=== PATIENT | male | born 1960 | race Caucasian/White ===

== ENCOUNTER 2018-01-22 12:02 | Outpatient (CLI) | payer OTHER ==
[~2018-01-22] VITALS: Ht 182.9 cm; Wt 103.0 kg
[~2018-01-22 12:02] MED LIST: AMLO1CAP4 PO; AMLO1TAB52 PO; CEPH500C PO; HYDR1TAB8 OP; SULF1TAB38 PO
[2018-01-22] MEDS ORDERED: ASPI-808 PO (12:10)
[2018-01-22] MEDS ORDERED: AMLO1CAP7 PO (12:10)
[2018-01-22 12:50] LABS: BASOPHILS % (AUTO) 0 % (0-10); EOSINOPHILS # (AUTO) 0.4 10^3/uL (0.0-0.3); EOSINOPHILS % (AUTO) 5 % (0-10); HEMATOCRIT 46 % (40-54); HEMOGLOBIN 16.2 G/DL (13.3-17.7); LYMPHOCYTES # (AUTO) 2.3 X 10^3 (1.0-4.0); LYMPHOCYTES % (AUTO) 30 % (12-44); MEAN CORPUSCULAR HEMOGLOBIN 31 PG (25-34); MEAN CORPUSCULAR HGB CONC 35 G/DL (32-36); MEAN CORPUSCULAR VOLUME 88 FL (80-99); MEAN PLATELET VOLUME 9.2 FL (7.4-10.4); MONOCYTES # (AUTO) 0.9 X 10^3 (0.0-1.0); MONOCYTES % (AUTO) 12 % (0-12); NEUTROPHILS % (AUTO) 52 % (42-75); PLATELET COUNT 256 10^3/uL (130-400); RED BLOOD COUNT 5.24 10^6/uL (4.35-5.85); RED CELL DISTRIBUTION WIDTH 13.6 % (10.0-14.5); WHITE BLOOD COUNT 7.7 10^3/uL (4.3-11.0)
--- NOTE | 2018-01-22 12:56 | Diagnostic Imaging Report ---
INDICATION: Preoperative evaluation for right knee replacement. COMPARISON: None. FINDINGS: Frontal and lateral views of the chest demonstrate normal heart size and pulmonary vascularity. The lungs are clear. There are no signs of infiltrate, pleural effusions or pneumothoraces. The visualized osseous structures show no acute abnormalities. IMPRESSION: 1. No acute process. No signs of infiltrates, effusions or pneumothoraces. Dictated by: Dictated on workstation # [id number]
[2018-01-22 13:03] VITALS: BP 137/83
[2018-01-22 13:04] LABS: PROTHROMBIN TIME PATIENT 13.1 SEC (12.2-14.7)
[2018-01-22 13:09] LABS: BUN/CREATININE RATIO 17; CARBON DIOXIDE 20 MMOL/L (21-32); CHLORIDE 107 MMOL/L (98-107); CREATININE SERUM 0.86 MG/DL (0.60-1.30); GFR ESTIMATED > 60; GLUCOSE 86 MG/DL (70-105); POTASSIUM 4.1 MMOL/L (3.6-5.0); SODIUM 137 MMOL/L (135-145)
[2018-01-22 14:03] LABS: BILIRUBIN,URINE NEGATIVE (NEGATIVE); CLARITY,URINE CLEAR; COLOR,URINE YELLOW; GLUCOSE, URINE (UA) NEGATIVE (NEGATIVE); KETONES,URINE NEGATIVE (NEGATIVE); LEUKOCYTE ESTERASE ,URINE NEGATIVE (NEGATIVE); NITRITE,URINE NEGATIVE (NEGATIVE); PH,URINE 5 (5-9); PROTEIN,URINE NEGATIVE (NEGATIVE); UROBILINOGEN,URINE NORMAL (NORMAL)
[2018-01-22 14:54] LABS: BACTERIA,URINE NEGATIVE /HPF; SQUAMOUS EPITHELIAL CELL,UR RARE /HPF
== END 2018-01-22 12:55 | disposition home or self-care (01) ==
LOC: PREOP 12:02
PROVIDERS: ATTEND Orthopaedic Surgery
DX: Z01.810 Encounter for preprocedural cardiovascular examination (principal); Z01.811 Encounter for preprocedural respiratory examination; Z01.812 Encounter for preprocedural laboratory examination; Z11.2 Encounter for screening for other bacterial diseases; M17.11 Unilateral primary osteoarthritis, right knee; I10 Essential (primary) hypertension; R53.83 Other fatigue; M79.661 Pain in right lower leg; Z22.322 Carrier or suspected carrier of Methicillin resistant Staphylococcus aureus
CPT/HCPCS: 36415; 71046; 80048; 81000; 85025; 85610; 86850; 86900; 86901; 87081; 93005

== ENCOUNTER 2018-02-05 06:00 | Inpatient (IN) | payer OTHER ==
[~2018-02-05] VITALS: Ht 182.9 cm; Wt 103.0 kg
[~2018-02-05 06:00] MED LIST changes: +AMLO1CAP7 PO; +ASPI-808 PO
[2018-02-05] MEDS ORDERED: ONDANSETRON 4 MG/2 ML (SDV) Z0FRAN IVP ONE (06:30)
[2018-02-05] MEDS ORDERED: CELECOXIB 100 MG (CeleBREX) CAP PO ONE (06:30)
[2018-02-05] MEDS ORDERED: ceFAZolin 2 GM IV Premixed 50 ML IV ONE (06:30)
[2018-02-05] MEDS ORDERED: GABAPENTIN 600 MG (NEURONTIN) TAB PO ONE (06:30)
[2018-02-05] MEDS ORDERED: DEXAMETHASONE 4 MG/ML SDV (DECADRON) IV ONE (06:30)
[2018-02-05] MEDS ORDERED: ROPIVACAINE 5MG/ML 30ML VIAL ONE (06:32)
[2018-02-05] MEDS ORDERED: MIDAZOLAM 2 MG/2 ML (VERSED) VIAL ONE (06:32)
[2018-02-05] MEDS ORDERED: fentaNYL INJECTION 100 MCG/2 ML AMP ONE ×2 (06:32→08:15)
[2018-02-05] MEDS ORDERED: NEO/POLY/BAC (NEOSPORIN) OINT 15 GM TUBE ONE (06:50)
[2018-02-05] MEDS ORDERED: GENTAMICIN 40 MG/ML 2 ML INJ SDV ONE (06:50)
[2018-02-05] MEDS: LACTATED RINGERS 1,000 ML IV PRN ×2 (06:55→09:19)
[2018-02-05] MEDS ORDERED: ALPR0.5T PO (07:48)
[2018-02-05 07:58] VITALS: BP 139/95
[2018-02-05] MEDS ORDERED: diphenhydrAMINE 50 MG/ML INJ (BENADRYL) IV PRN (08:00)
[2018-02-05] MEDS ORDERED: ONDANSETRON 4 MG/2 ML (SDV) Z0FRAN IVP PRN ×2 (08:00→11:00)
[2018-02-05] MEDS ORDERED: PROMETHAZINE INJ 25 MG/ML (PHENERGAN) AMP IVP PRN (08:00)
[2018-02-05] MEDS ORDERED: morphine INJ 10 MG/ML 1ML (SYR OR VIAL) IVP PRN ×2 (08:00→11:00)
[2018-02-05] MEDS ORDERED: BACLOFEN 10 MG (LIORESAL) TAB PO PRN (08:00)
[2018-02-05] MEDS ORDERED: BISACODYL 10 MG SUPP (DULCOLAX) PR PRN (08:00)
--- NOTE | 2018-02-05 08:00 | Progress Note-Pre Operative ---
Pre-Operative Progress Note H&P Reviewed The H&P was reviewed, patient examined and no changes noted. Date Seen by Provider: Feb 05, 2018 Time Seen by Provider: 07:50 Date H&P Reviewed: Feb 05, 2018 Time H&P Reviewed: 07:50 Pre-Operative Diagnosis: Primary Osteoarthritis Right Knee KRISTA MARQUEZ DO Feb 05, 2018 8:00 am
[2018-02-05] MEDS ORDERED: INTRA-ARTICULAR IU ONE ×4 (08:30)
[2018-02-05] MEDS ORDERED: GENTAMICIN 40 MG/ML 2 ML INJ SDV IR SCH ×2 (08:45→09:45)
[2018-02-05] MEDS ORDERED: DEXAMETHASONE 10 MG/ML (DECADRON) 1 ML VIAL ONE (08:49)
[2018-02-05] MEDS ORDERED: proPOfol 200 MG/20 ML (DIPRIVAN) VIAL IV ONE (08:49)
[2018-02-05] MEDS ORDERED: NON-FORMULARY MEDICATION 1 EA EA (Amlodipine Besylate/Benazepril (Amlodipine-Benazepril 5- PO SCH (09:00)
[2018-02-05] MEDS ORDERED: TRANEXAMIC ACID 100 MG/ML 10 ML INJECTION IV ONE (09:31)
--- NOTE | 2018-02-05 10:09 | Progress Note-Post Operative ---
Post-Operative Progess Note Surgeon (s)/Mold Presser (s) Surgeon KRISTA MARQUEZ DO Mold Presser: [facility] [employer]-[facility] Pre-Operative Diagnosis Primary Osteoarthritis Right Knee Post-Operative Diagnosis Primary Osteoarthritis Right Knee Procedure & Operative Findings Date of Procedure 02/05/18 Procedure Performed/Findings Right Total Knee Arthroplasty Anesthesia Type General with femoral nerve block Estimated Blood Loss Estimated blood loss (mL): 100 ml Specimens/Packing Specimens Removed none KRISTA MARQUEZ DO Feb 05, 2018 10:08 am
[2018-02-05] MEDS ORDERED: SEVOFLURANE (ULTANE) 15 ML INHAL SOLN ONE (10:18)
--- NOTE | 2018-02-05 10:54 | Diagnostic Imaging Report ---
INDICATION: Postoperative. TECHNIQUE: 2 post operative radiographs of the right knee 10:42 AM CORRELATION STUDY: None FINDINGS: There are postsurgical changes of a total knee arthroplasty. Alignment is anatomic. Installed hardware appearing unremarkable. Overlying soft tissue gas collections and skin vianney are present. IMPRESSION: Postsurgical changes of a right total knee replacement. Dictated by: Dictated on workstation # [id number]
[2018-02-05] MEDS: D5 1/2 NS 1000 ML IV SOLUTION 1,000 ML IV SCH (11:57)
[2018-02-05 12:00] VITALS: BP 153/85
[2018-02-05] MEDS ORDERED: NAPR220T66 PO (13:07)
--- NOTE | 2018-02-05 13:57 | OPERATIVE REPORT ---
DATE OF SERVICE: 02/05/2018 PREOPERATIVE DIAGNOSIS: Primary osteoarthritis, right knee. POSTOPERATIVE DIAGNOSIS: Primary osteoarthritis, right knee. PROCEDURE: Right total knee arthroplasty. SURGEON: Krista Marquez DO. PV INSTALLER TECH: EM Oscar. ANESTHESIA: General with femoral nerve block. INDICATIONS AND FINDINGS: The patient is a 57-year-old male seen with chief complaint of progressive right knee pain, swelling and deformity. The patient has significant varus deformity of his right knee with recurrent giving way sensation. X-rays revealed a collapse of the medial patellofemoral compartment. The patient was taken to surgery where a total knee arthroplasty was performed without complication on the right utilizing the Biomet Sympozguard total knee system with a cemented 67.5 mm femoral component, a cemented 75 mm fixed I-beam tibial plate, a 34 mm 3-pronged all-polyethylene cemented thin patella, 11 mm anterior stabilized tibial bearing implant was utilized, Palacos bone cement with gentamicin was utilized as well. PROCEDURE IN DETAIL: The patient was seen by anesthesia preoperatively and a femoral nerve block was performed on the right to decrease postop pain and decrease amount of medication required during the surgical procedure. The patient was transported to the operating room where general inhalation anesthetic was administered. A well-padded pneumatic tourniquet was placed about the upper aspect of the right thigh. A ChloraPrep and sterile drape of the right lower extremity was performed. Right leg was elevated, exsanguinated and the tourniquet inflated to 300 mmHg pressure. An anterior longitudinal midline incision was made over the anterior surface of the knee. The incision was deepened through a medial parapatellar incision. The patella was subluxed laterally. Hypertrophic osteophyte formation of the distal femur was removed. The bone was removed with a bone rongeur. A yard pilot hole was then drilled in the distal femur. An intramedullary jessica was inserted utilizing a 5-degree cutting angle. A distal femoral cutting guide was assembled and distal femoral osteotomy was completed. The distal femur was sized to a 67.5 mm femoral component. A 4-way cutting guide was assembled. Anterior, posterior and chamfer cuts of the distal femur made. Remnants of the medial and lateral menisci were excised. The anterior cruciate ligament was excised. The tibia was subluxed anteriorly. A yard pilot hole was then drilled into the proximal tibia. An intramedullary jessica was inserted, measuring off the exposed bone over the proximal medial tibia. A proximal tibial cutting guide was assembled and a proximal tibial osteotomy was completed. Additional subperiosteal dissection was performed on the proximal medial tibia. The knee could be fully extended with a provisional spacer. Osteophyte formation from the rim of the patella was removed with a bone rongeur. The posterior aspect of the patella was resected through a cutting guide and drill through a drill guide. Provisional components were inserted within the knee. The knee was cycled through a range of motion. Rotation of the tibial component was noted and marked on the proximal tibia. The proximal tibia was then broached to accept the I-beam stem portion of the tibial implant. Palacos bone cement with gentamicin was then mixed. This was then pressurized in the proximal tibia and the tibial component was cemented in place. Four additional small drill holes have been placed in the significant sclerotic bone in the proximal medial tibia for additional fixation. The femoral component was cemented in place. The knee was taken into full extension with a provisional tibial bearing implant. Patellar component was cemented in place and held with a clamp. Excess of cement was removed. The cement was allowed to set. The knee was reexamined for stability and an 11 mm anterior stabilized tibial bearing implant was inserted and locked anteriorly with the locking bar. No instability in full flexion and mid range flexion was noted. Full extension of the knee was obtained. The tourniquet was released. Hemostasis was obtained with electrocautery. The knee was placed in 90 degrees of flexion and the medial retinaculum was closed with multiple interrupted [id number] sutures of #1 Vicryl reinforced with a running suture of #1 Stratafix. The subcutaneous tissues were closed with 0 and 2-0 Vicryl suture. The skin was closed with stainless steel vianney and Adaptic Neosporin bulky dressing was placed on the right knee. The patient was awakened and was transported to postop recovery with anesthesia personnel present in satisfactory condition. Job ID: [id number] DocumentID: [id number] Dictated Date: 02/05/2018 10:29:30 Cable Dispatcher Date: 02/05/2018 13:56:50 Dictated By: KRISTA MARQUEZ DO
[2018-02-05 15:30] VITALS: BP 148/81
[2018-02-05] MEDS: ceFAZolin 2 GM IV Premixed 50 ML IV SCH (15:31)
[2018-02-05 20:00] VITALS: BP 137/85
[2018-02-05] MEDS: KETOROLAC 30 MG/ML VIAL IVP PRN (20:07)
[2018-02-05] MEDS: ENOXAPARIN 40 MG/0.4 ML (LOVENOX) SYR SC SCH (20:08)
[2018-02-06] VITALS: BP 133/59
[2018-02-06] MEDS: D5 1/2 NS 1000 ML IV SOLUTION 1,000 ML IV SCH (00:50)
[2018-02-06] MEDS: KETOROLAC 30 MG/ML VIAL IVP PRN (04:02)
[2018-02-06 04:16] VITALS: BP 111/53
[2018-02-06 06:10] LABS: HEMOGLOBIN 13.3 G/DL (13.3-17.7); MEAN PLATELET VOLUME 9.2 FL (7.4-10.4); RED BLOOD COUNT 4.34 10^6/uL (4.35-5.85); RED CELL DISTRIBUTION WIDTH 13.6 % (10.0-14.5); WHITE BLOOD COUNT 17.9 10^3/uL (4.3-11.0)
[2018-02-06 06:31] LABS: BUN/CREATININE RATIO 16; CALCIUM 8.9 MG/DL (8.5-10.1); CARBON DIOXIDE 19 MMOL/L (21-32); CHLORIDE 107 MMOL/L (98-107); CREATININE SERUM 0.91 MG/DL (0.60-1.30); GFR ESTIMATED > 60; GLUCOSE 205 MG/DL (70-105); POTASSIUM 4.5 MMOL/L (3.6-5.0); SODIUM 134 MMOL/L (135-145)
--- NOTE | 2018-02-06 07:21 | Anesthesia-General Post-Op ---
General Patient Condition Mental Status/LOC: Same as Preop Cardiovascular: Satisfactory Nausea/Vomiting: Absent Respiratory: Satisfactory Pain: Controlled Complications: Absent Post Op Complications Complications None Follow Up Care/Instructions Patient Instructions None needed. Anesthesia/Patient Condition Patient Condition Patient is doing well, no complaints, stable vital signs, no apparent adverse anesthesia problems. No complications reported per nursing. ZEKE DAMON CRNA Feb 06, 2018 07:21
[2018-02-06 08:00] VITALS: BP 132/78
[2018-02-06] MEDS: lisINopril 10 MG (PRINIVIL) TABLET PO SCH (08:55)
[2018-02-06] MEDS: HYDROcodone/APAP 10 MG/325 MG (LORTAB) TAB PO PRN ×3 (08:55→20:44)
[2018-02-06] MEDS: SENNA W/DOCUSATE (SENOKOT S) TABLET PO SCH ×2 (08:55→20:44)
[2018-02-06] MEDS: amLODIPine 5 MG (NORVASC) TAB PO SCH (08:55)
[2018-02-06] MEDS: ASPIRIN E.C. 325 MG (ECOTRIN) TABLET PO SCH ×2 (08:55→09:45)
[2018-02-06] MEDS: BISACODYL 5 MG (DULCOLAX) TABLET PO SCH ×3 (08:55→20:43)
--- NOTE | 2018-02-06 10:46 | Physical Therapy Evaluation ---
PT Evaluation-General Medical Diagnosis Admission Date Feb 05, 2018 at 06:00 Medical Diagnosis: right TKA Onset Date: Feb 05, 2018 Therapy Diagnosis Therapy Diagnosis: impaired mobility, strength, endruance, ROM Height/Weight Height (Feet): 6 Height (Inches): 0.00 Weight (Pounds): 227 Weight (Ounces): 0.0 Precautions Precautions/Isolations: Fall Prevention, Standard Precautions Weight Bear Status Right Lower Extremity: Right Weight Bearing/Tolerated Left Lower Extremity: Left Full Weight Bearing Referral Physician: Sunny Coelho DO Reason for Referral: Evaluation/Treatment Medical History Current History surgery right TKA Reviewed History: Yes Social History Home: Single Level Current Living Status: Spouse PT Steps Into Home: 2 Prior/Core FIM Prior Level of Function Functional [place] Measure 0=Not Assessed/NA 4=Minimal Assistance 1=Total Assistance 5=Supervision or Setup 2=Maximal Assistance 6=Modified [place] 3=Moderate Assistance 7=Complete [place] Bed Mobility: 7 Transfers (B,C,W/C) (FIM): 7 Gait: 7 PT Evaluation-Current Subjective Patient in bed pre tx, agrees to PT, has pain of 2/10 in right knee. Pt/Family Goals "to improve his knee pain" Objective Patient Orientation: Person, Place, Situation Attachments: SCD's, Polar Pack ROM/Strength ROM Lower Extremities right knee flexion 70 degrees, extension +5 degrees Strength Lower Extremities NT Neuromuscular (Tone, Coordination, Reflexes) NT Sensory Vision: Functional Hearing: Functional Sensation Right Lower Extremit: Intact Sensation Left Lower Extremity: Intact Sensation Lower Extremities Patient has no complaints of numbness or tingling other than directly on his incision. Transfers Functional [place] Measure 0=Not Assessed/NA 4=Minimal Assistance 1=Total Assistance 5=Supervision or Setup 2=Maximal Assistance 6=Modified [place] 3=Moderate Assistance 7=Complete [place] Transfers (B, C, W/C) (FIM): 4 Scootin Rollin Supine to/from Sit: 4 Sit to/from Stand: 4 bed t/f WC(FIM only if WC use): 4 Min assist to get right leg into and out of bed, CGA for transfers. Cues for hand placement and safety. Gait Mode of Locomotion: Walk Anticipated Mode of Locomotion: Walk Gait (FIM): 4 Distance: 150' Gait Level of Assist: 4 Gait Persons Needed: 1 Gait Assistive Device: FWW Comments/Gait Description Patient ambulated 150' with a rolling walker with CGA, antalgic gait, slightly flexed right knee. Balance Sitting Static: Normal Sitting Dynamic: Normal Standing Static: Good Standing Dynamic: Good Treatment right TKA protocol x10 (AP, QS, HS, SAQ, SLR) Assessment/Needs Patient has impaired mobility, strength, endurance, ROM post right TKA. After treatment patient in bed with CPM donned at 70/-2 degrees and polar care on. Patient has nurse call, phone, tray, all needs met. Rehab Potential: Fair PT Short Term Goals Short Term Goals Time Frame: Feb 13, 2018 Transfers (B,C,W/C) (FIM): 5 Gait (FIM): 5 Gait Distance Comment: 300' Gait Level of Assist: 5 Gait Assistive Device: FWW PT Plan Problem List Problem List: Activity Tolerance, Functional Strength, Safety, Balance, Gait, Transfer, Bed Mobility, ROM Treatment/Plan Treatment Plan: Continue Plan of Care Treatment Plan: Bed Mobility, Education, Functional Activity Teresa, Functional Strength, Gait, Safety, Therapeutic Exercise, Transfers Treatment Duration: Feb 13, 2018 Frequency: 11 times per week Estimated Hrs Per Day: .25 hour per day (15-30') Patient and/or Family Agrees t: Yes Safety Risks/Education Patient Education: Gait Training, Transfer Techniques, Reviewed Use of Ice, Correct Positioning, Disease Process, Safety Issues Teaching Recipient: Patient Teaching Methods: Demonstration, Discussion Response to Teaching: Reinforcement Needed Discharge Recommendations Plan Patient will perform bed mobility and transfer training, balance and endurance training, functional strengthening, stair training, gait training, and education , to improve functional mobility and independence at home. Therapy D/C Recommendations: Home w/ Family Support Time/GCodes Time In: 1005 Time Out: 1035 Total Billed Treatment Time: 30 Total Billed Treatment 1 visit EVL 15' GT 15' MACIE MARKS PT Feb 06, 2018 10:46
[2018-02-06 12:00] VITALS: BP 145/88
--- NOTE | 2018-02-06 13:27 | Progress Note (SOAP) ---
Subjective Date Seen by Provider: Feb 06, 2018 Time Seen by Provider: 13:10 Subjective/Events-last exam Awake4 and alert no complaints Focused Exam Respiratory: Lungs Clear Cardiovascular: Regular Rate, Rhythm Peripheral Pulses: 2+ Dorsalis Pedis (R) Skin: normal color Objective Exam Vital Signs Date Time Temp Pulse Resp B/P (MAP) Pulse Ox O2 Delivery O2 Flow Rate FiO2 02/06/18 12:00 98.8 82 18 145/88 (107) 96 Room Air 02/06/18 08:00 98 Room Air 02/06/18 08:00 96.4 82 16 132/78 (96) 98 Room Air 02/06/18 04:16 97.7 94 18 111/53 (72) 97 Room Air 02/06/18 00:00 98.2 95 19 133/59 (83) 95 Room Air 02/05/18 20:00 98.5 95 20 137/85 (102) 94 Room Air 02/05/18 15:30 97.8 100 20 148/81 (103) 93 Room Air I & O 02/06/18 07:00 Intake Total 2740 ml Output Total 1550 ml Balance 1190 ml Capillary Refill : General Appearance: No Apparent Distress Neck: Full Range of Motion Respiratory: Lungs Clear Cardiovascular: Regular Rate, Rhythm Peripheral Pulses: 2+ Dorsalis Pedis (R) Gastrointestinal: non tender Extremity: No Calf Tenderness Neurologic/Psychiatric: Oriented x3 Skin: Normal Color Lymphatic: No Adenopathy Results Lab Laboratory Tests 02/06/18 05:32: White Blood Count 17.9H, Red Blood Count 4.34L, Hemoglobin 13.3, Hematocrit 39L , Mean Corpuscular Volume 89, Mean Corpuscular Hemoglobin 31, Mean Corpuscular Hemoglobin Concent 35, Red Cell Distribution Width 13.6, Platelet Count 259, Mean Platelet Volume 9.2, Sodium Level 134L, Potassium Level 4.5, Chloride Level 107, Carbon Dioxide Level 19L, Anion Gap 8, Blood Urea Nitrogen 15, Creatinine 0.91, Estimat Glomerular Filtration Rate > 60, BUN/Creatinine Ratio 16, Glucose Level 205H, Calcium Level 8.9 Assessment/Plan Assessment/Plan Assess & Plan/Chief Complaint Status post Right Total knee Arthroplasty Final Diagnosis Primary Osteoarthritis right knee Clinical Quality Measures DVT/VTE Risk/Contraindication: Risk Factor Score Per Nursin RFS Level Per Nursing on Admit: 4+=Very High ALMAKRISTA ALFARO DO Feb 06, 2018 1:27 pm
--- NOTE | 2018-02-06 14:47 | Physical Therapy Daily Note ---
PT Daily Note-Current Subjective Patient in bed pre tx, agrees to PT, has 2/10 pain. Appearance Patient in bed post tx, with nurse call, phone, tray, all needs met. Polar care on. Mental Status Patient Orientation: Normal For Age Attachments: Polar Pack Transfers Functional [place] Measure 0=Not Assessed/NA 4=Minimal Assistance 1=Total Assistance 5=Supervision or Setup 2=Maximal Assistance 6=Modified [place] 3=Moderate Assistance 7=Complete IndependenceIRFPAI Quality Coding Scale 6 Independent with activity with or without an assistive device 5 Patient requires set up or clean up by helper. Patient completes activity by themselves 4 Supervision or touching assist (CGA). [place] provide cues , steadying assist 3 The helper provides less than half the effort to complete the activity 2 The helper provides more than half the effort to complete the activity 1 Dependent. The helper does all the effort to complete an activity 7 Patient refused to complete or attempt activity 9 The patient did not perform the activity before the current illness or injury 88 Not attempted due to Medical conditions or safety concerns Transfers (B, C, W/C) (FIM): 5 Scootin Rollin Supine to/from Sit: 5 Sit to/from Stand: 5 Bed to/from Chair: 5 Steady, no LOB Weight Bearing Right Lower Extremity: Right Weight Bearing/Tolerated Left Lower Extremity: Left Full Weight Bearing Gait Training Gait (FIM): 5 Distance: 250' Gait Level of Assist: 5 Gait Persons Needed: 1 Gait Assistive Device: FWW antalgic, slow, slightly flexed right knee Exercises Supine Ex: Ankle pumps, Quad Set, Heel Slides, Short Arc Quads, Straight leg raise Supine Reps: 10 (RLE) Treatments bed mobility, transfers, ambulation, functional strengthening, ROM Assessment Current Status: Fair Progress improving ambulation and transfers PT Short Term Goals Short Term Goals Time Frame: Feb 13, 2018 Transfers (B,C,W/C) (FIM): 5 Gait (FIM): 5 Gait Distance Comment: 300' Gait Level of Assist: 5 Gait Assistive Device: FWW PT Plan Problem List Problem List: Activity Tolerance, Functional Strength, Safety, Balance, Gait, Transfer, Bed Mobility, ROM Treatment/Plan Treatment Plan: Continue Plan of Care Treatment Plan: Bed Mobility, Education, Functional Activity Teresa, Functional Strength, Gait, Safety, Therapeutic Exercise, Transfers Treatment Duration: Feb 13, 2018 Frequency: 11 times per week Estimated Hrs Per Day: .25 hour per day (15-30') Patient and/or Family Agrees t: Yes Safety Risks/Education Patient Education: Gait Training, Transfer Techniques, Correct Positioning, Safety Issues Teaching Recipient: Patient Teaching Methods: Demonstration, Discussion Response to Teaching: Reinforcement Needed Time/GCodes Time In: 1420 Time Out: 1440 Total Billed Treatment Time: 20 Total Billed Treatment 1 visit GT 20' MACIE MARKS PT Feb 06, 2018 14:47
--- NOTE | 2018-02-06 15:20 | Occ Therapy Progress Note ---
Therapy Progress Note OT order received and chart reviewed. Attempted treatment twice. However, pt states that he is doing well. Reports that he is able to ambulate to toilet, complete toileting tasks, and don LE clothing. Pt. getting ready to spongebathe at second attempt, but states that he can do this on his own. OT did educate him on keeping incision dry at home, exercise precautions, and how to position bed at home for CPM use. Pt. verbalizes understanding. No need for skilled OT at this time. However, if pt. were to have questions or require assist, this OT would be happy to come back for education. 1, visit 115- 1, visit [id number] No charge, no evaluation. SANTANA MEADOWS OT Feb 06, 2018 15:20
[2018-02-06 16:00] VITALS: BP 130/70
[2018-02-06 20:00] VITALS: BP 138/76
[2018-02-06] MEDS: ENOXAPARIN 40 MG/0.4 ML (LOVENOX) SYR SC SCH (20:44)
[2018-02-07] VITALS: BP 125/77
[2018-02-07 04:00] VITALS: BP 150/89
[2018-02-07] MEDS: HYDROcodone/APAP 10 MG/325 MG (LORTAB) TAB PO PRN ×2 (04:33→08:36)
[2018-02-07 06:51] LABS: HEMOGLOBIN 13.2 G/DL (13.3-17.7); MEAN PLATELET VOLUME 9.5 FL (7.4-10.4); RED BLOOD COUNT 4.29 10^6/uL (4.35-5.85); RED CELL DISTRIBUTION WIDTH 13.7 % (10.0-14.5); WHITE BLOOD COUNT 9.6 10^3/uL (4.3-11.0)
[2018-02-07 07:12] LABS: BUN/CREATININE RATIO 19; CALCIUM 8.8 MG/DL (8.5-10.1); CARBON DIOXIDE 24 MMOL/L (21-32); CHLORIDE 106 MMOL/L (98-107); CREATININE SERUM 0.84 MG/DL (0.60-1.30); GFR ESTIMATED > 60; GLUCOSE 123 MG/DL (70-105); POTASSIUM 4.1 MMOL/L (3.6-5.0); SODIUM 137 MMOL/L (135-145)
--- NOTE | 2018-02-07 07:21 | Progress Note (SOAP) ---
Subjective Date Seen by Provider: Feb 07, 2018 Time Seen by Provider: 07:19 Subjective/Events-last exam POD 2 s/p right TKA, no complaints. states he is ready for DC. Ambulating with little assistance Objective Exam Vital Signs Date Time Temp Pulse Resp B/P (MAP) Pulse Ox O2 Delivery O2 Flow Rate FiO2 02/07/18 04:00 97.5 83 18 150/89 (109) 97 Room Air 02/07/18 00:00 96.2 82 16 125/77 (93) 96 Room Air 02/06/18 20:00 98.0 75 20 138/76 (96) 98 Room Air 02/06/18 16:00 98.0 85 20 130/70 (90) 97 Room Air 02/06/18 12:00 98.8 82 18 145/88 (107) 96 Room Air 02/06/18 08:00 98 Room Air 02/06/18 08:00 96.4 82 16 132/78 (96) 98 Room Air I & O 02/07/18 07:00 Intake Total 2475 ml Output Total 1450 ml Balance 1025 ml Capillary Refill : General Appearance: No Apparent Distress HEENT: PERRL/EOMI Respiratory: Normal Breath Sounds Cardiovascular: Regular Rate, Rhythm Gastrointestinal: non tender, soft Extremity: No Calf Tenderness, No Pedal Edema Neurologic/Psychiatric: Alert, Oriented x3 Skin: Normal Color, Warm/Dry (dressing to right knee CDI) Results Lab Laboratory Tests 02/07/18 05:52: White Blood Count 9.6, Red Blood Count 4.29L, Hemoglobin 13.2L, Hematocrit 39L, Mean Corpuscular Volume 90, Mean Corpuscular Hemoglobin 31, Mean Corpuscular Hemoglobin Concent 34, Red Cell Distribution Width 13.7, Platelet Count 241, Mean Platelet Volume 9.5, Sodium Level 137, Potassium Level 4.1, Chloride Level 106, Carbon Dioxide Level 24, Anion Gap 7, Blood Urea Nitrogen 16, Creatinine 0.84, Estimat Glomerular Filtration Rate > 60, BUN/Creatinine Ratio 19, Glucose Level 123H, Calcium Level 8.8 Assessment/Plan Assessment/Plan Assess & Plan/Chief Complaint A: s/p right TKA P: DC to home today with [facility] Clinical Quality Measures DVT/VTE Risk/Contraindication: Risk Factor Score Per Nursin RFS Level Per Nursing on Admit: 4+=Very High NIGEL,SUHAIL E ENROBER Feb 07, 2018 7:21 am
[2018-02-07] MEDS ORDERED: HYDR-3820 PO (07:23)
[2018-02-07] MEDS ORDERED: SENN-20 PO (07:23)
[2018-02-07] MEDS ORDERED: TRAM50TA2 PO (07:23)
--- NOTE | 2018-02-07 07:28 | D/C HH Face to Face Order ---
D/C Face to Face Orders Instructions for Patient Patient Instructions/FollowUp: Refer to Dr. Coelho's TKA DC instructions Physician to follow Patient: Dr. Coelho Discharge Diet for Home: No Restrictions, Regular Diet Patient Problems: S/p Right TKA, Primary OA right knee Patient Data-Allergies,Ht & Wt Patient Allergies: Coded Allergies: No Known Drug Allergies (Unverified , 11/10/10) Height (Feet): 6 Height (Inches): 0.00 Weight (Pounds): 227 Weight (Ounces): 0.0 Home Health Need/Face to Face Date of Face to Face: Feb 07, 2018 Clinical Findings: Generalized weakness and fatigue, Pain with ambulation, Unsteady gait I have seen Pt [id number]: Yes Discharged To: Home Diagnosis/Conditions: Primary OA Right knee s/p right TKA Problems/Diagnosis/Condition: (1) Primary osteoarthritis of right knee Patient is Homebound due to: Jeanna fall risk due to instabilty, Pain w/ ambulation Homebound Status Due to the above stated illness, injury or surgical procedure (medical condition or diagnosis) and associated clinical findings, the patient is homebound because of his/her inability to leave home except with aid of a supportive device and/or person AND leaving the home requires a considerable and taxing effort or is medically contraindicated. Pt req the following assistanc: Walker Home Health Nursing Orders Home Health Services Order: Physical Therapy-Evaluate & Treat physical therapy 5x/week x2 weeks with assist with ambulation and treat ROM Remove vianney POD #10 and apply steri strips Home Health Infusion Therapy Line Start Date: Feb 05, 2018 Line Start Time: 0630 Line Type: Saline Lock Site Location: Forearm Therapy Orders Therapy Orders: Physical Therapy, PT to assess for OT Therapy Specific Orders: Gait training, Increase strength/endurance, Restore ROM Certify Stmt I certify that this patient is under my care and that I, a nurse practitioner or a physician; a respiratory therapy assistant working with me, had a face to face encounter that - meets the physician face to face encounter requirements with this patient as dated. SUHAIL MANNING APRN Feb 07, 2018 7:28 am
--- NOTE | 2018-02-07 07:32 | Discharge Summary ---
Diagnosis/Chief Complaint Date of Admission Feb 05, 2018 at 6:00 am Date of Discharge Discharge Date: Feb 07, 2018 Discharge Time: 1400 Admission Diagnosis Admission Diagnosis Primary OA right knee Discharge Diagnosis Primary OA right knee s/p right TKA Reason Hospital Visit Scheduled right total knee arthroplasty Discharge Summary Procedures: Right Total Knee Arthroplasty Discharge Physical Examination Allergies: Coded Allergies: No Known Drug Allergies (Unverified , 11/10/10) Vitals & I&Os Vital Signs Date Time Temp Pulse Resp B/P (MAP) Pulse Ox O2 Delivery O2 Flow Rate FiO2 02/07/18 04:00 97.5 83 18 150/89 (109) 97 Room Air General Appearance: Alert, Oriented X3 HEENT: PERRLA Respiratory: Clear to Auscultation Cardiovascular: Regular Rate Abdominal: Normal Bowel Sounds, Soft Extremities: No Tenderness/Swelling Skin: No Rashes, No Breakdown Neuro: Normal Speech Hospital Course The patient failed conservative treatment for primary OA of the right knee. A TKA was performed on the DOA in the operating room. Overall, the hospital course was uneventful. He was maintained on DVT prophylaxis as well as IV antibiotic prophylaxis. He was discharged to home on POD 2 with [facility] Pending Labs Laboratory Tests 02/07/18 05:52: White Blood Count 9.6, Red Blood Count 4.29, Hemoglobin 13.2, Hematocrit 39, Mean Corpuscular Volume 90, Mean Corpuscular Hemoglobin 31, Mean Corpuscular Hemoglobin Concent 34, Red Cell Distribution Width 13.7, Platelet Count 241, Mean Platelet Volume 9.5, Sodium Level 137, Potassium Level 4.1, Chloride Level 106, Carbon Dioxide Level 24, Anion Gap 7, Blood Urea Nitrogen 16, Creatinine 0.84, Estimat Glomerular Filtration Rate > 60, BUN/Creatinine Ratio 19, Glucose Level 123, Calcium Level 8.8 Discharge Condition at discharge Good Instructions to patient/family Please see electronic discharge instructions given to patient. Discharge Medications Reviewed and agree with Discharge Medication list on patient's Discharge Instruction sheet Clinical Quality Measures DVT/VTE Risk/Contraindication: Risk Factor Score Per Nursin RFS Level Per Nursing on Admit: 4+=Very High SUHAIL MANNING [employer] Feb 07, 2018 7:32 am
[2018-02-07] MEDS: KETOROLAC 30 MG/ML VIAL IVP PRN (08:36)
[2018-02-07] MEDS: D5 1/2 NS 1000 ML IV SOLUTION 1,000 ML IV SCH (08:39)
[2018-02-07] MEDS: ENOXAPARIN 40 MG/0.4 ML (LOVENOX) SYR SC SCH (08:45)
[2018-02-07] MEDS: BISACODYL 5 MG (DULCOLAX) TABLET PO SCH (08:46)
[2018-02-07] MEDS: amLODIPine 5 MG (NORVASC) TAB PO SCH (08:46)
[2018-02-07] MEDS: lisINopril 10 MG (PRINIVIL) TABLET PO SCH (08:46)
[2018-02-07] MEDS: SENNA W/DOCUSATE (SENOKOT S) TABLET PO SCH (08:46)
[2018-02-07] MEDS: ASPIRIN E.C. 325 MG (ECOTRIN) TABLET PO SCH (08:46)
[2018-02-07 08:52] VITALS: BP 152/89
--- NOTE | 2018-02-07 09:34 | Physical Therapy Daily Note ---
PT Daily Note-Current Subjective Patient agrees to PT. Pain Numeric Pain Scale: 5-Moderate Pain Location: Right Location Body Site: Knee Pain Description: Acute Mental Status Patient Orientation: Normal For Age Transfers Functional [place] Measure 0=Not Assessed/NA 4=Minimal Assistance 1=Total Assistance 5=Supervision or Setup 2=Maximal Assistance 6=Modified [place] 3=Moderate Assistance 7=Complete IndependenceIRFPAI Quality Coding Scale 6 Independent with activity with or without an assistive device 5 Patient requires set up or clean up by helper. Patient completes activity by themselves 4 Supervision or touching assist (CGA). [place] provide cues , steadying assist 3 The helper provides less than half the effort to complete the activity 2 The helper provides more than half the effort to complete the activity 1 Dependent. The helper does all the effort to complete an activity 7 Patient refused to complete or attempt activity 9 The patient did not perform the activity before the current illness or injury 88 Not attempted due to Medical conditions or safety concerns Transfers (B, C, W/C) (FIM): 6 Scootin Rollin Supine to/from Sit: 6 Sit to/from Stand: 6 Weight Bearing Right Lower Extremity: Right Weight Bearing/Tolerated Left Lower Extremity: Left Full Weight Bearing Gait Training Gait (FIM): 6 Distance (FIM): 3=150 ft Distance: 275' x 2 Gait Level of Assist: 6 Gait Assistive Device: FWW reciprocal, antalgic Stair Training Stair Training: Handrails/: 1 handrail, uses walker Stairs (FIM): 2 #of Steps: 4 Stairs: Pattern: Step to Level of Assist: 5 Exercises Supine Ex: Ankle pumps, Quad Set Supine Reps: 10 Seated Therapy Exercises: Ankle pumps, Long arc quads Seated Reps: 20 Assessment Patient to dismiss to home with home health intervention. Patient progressing and has been instructed to perform HEP 3/day at 15 reps. PT Short Term Goals Short Term Goals Time Frame: Feb 13, 2018 Transfers (B,C,W/C) (FIM): 5 Gait (FIM): 5 Gait Distance Comment: 300' Gait Level of Assist: 5 Gait Assistive Device: FWW PT Plan Treatment/Plan Treatment Plan: Discontinue PT Treatment Plan: Bed Mobility, Education, Functional Activity Teresa, Functional Strength, Gait, Safety, Therapeutic Exercise, Transfers Treatment Duration: Feb 13, 2018 Frequency: 11 times per week Estimated Hrs Per Day: .25 hour per day (15-30') Patient and/or Family Agrees t: Yes Time/GCodes Time In: 830 Time Out: 853 Total Billed Treatment Time: 23 Total Billed Treatment 1 visit GT 10 min EX 13 min MARTA LUCAS PT Feb 07, 2018 09:34
[2018-02-07 11:20] VITALS: BP 152/89
== END 2018-02-07 11:20 | disposition home health service (06) | DRG 470 ==
LOC: 4TH 06:00 → SURG 06:01 → 4TH 11:16
PROVIDERS: ADMIT Orthopaedic Surgery; ATTEND Orthopaedic Surgery
PROC: 0SRC0J9 Replacement of Right Knee Joint with Synthetic Substitute, Cemented, Open Approach (ICD-10-PCS; principal; 2018-02-05 07:56)
DX: M17.11 Unilateral primary osteoarthritis, right knee (principal); I10 Essential (primary) hypertension
CPT/HCPCS: 36415; 73560; 80048; 85027; 86850; 86900; 86901

== ENCOUNTER 2018-04-02 09:34 | Outpatient (RCR) | payer OTHER ==
[~2018-04-02 09:34] MED LIST changes: +ALPR0.5T PO; +HYDR-3820 PO; +NAPR220T66 PO; +SENN-20 PO; +TRAM50TA2 PO
== END 2018-04-02 10:06 | disposition home or self-care (01) ==
PROVIDERS: ATTEND Nurse Practitioner Family
DX: Z47.1 Aftercare following joint replacement surgery (principal); Z96.651 Presence of right artificial knee joint

== ENCOUNTER → 2018-06-26 | Outpatient (CLI) | payer OTHER ==
[~2018-06-26] MED LIST changes: +CARI350T PO; +IBUP-30 PO; +RT-ALBUTEROL SULF 2.5 MG/3 ML PRE-MIX VIAL INH ONE
== END ==
LOC: RT 13:15
PROVIDERS: ATTEND Nurse Practitioner Family
DX: R06.00 Dyspnea, unspecified (principal)
CPT/HCPCS: 94060; 94726; 94729